=== PATIENT | female | born 1995 | race African-American/Black ===

== ENCOUNTER 2020-08-03 18:01 | Emergency (ER) | payer OTHER ==
[~2020-08-03] VITALS: Ht 147.3 cm; Wt 59.8 kg
--- NOTE | 2020-08-03 18:11 | PHYS DOC ---
Past History Past Medical History: Anxiety, Depression General Adult EDM: Chief Complaint: SUICIDAL IDEATION HPI: HPI: ".. I don't know... I woke up in the middle of night.. and I thought .. I just wanted to kill myself.. just go to sleep and never wake up.. so I took all my meds.. and planned on going to sleep and never walking up... but I woke up this morning.. .. I told my superior.. and they sent me here to get evaluated. ... I ve always had thoughts of suicide.. almost my entire life.. but never really acted on it... I did have a recent fight with my ... this weekend.. but we talked it out... it not the stress of my job... because I like my job... I ve always has some anxiety issues... especially as a teenager... I use to cut my wrists.. not to kill myself.. but get stress relief.. never been admitted for any psych.. stuff or taken any psych meds.. or even gotten any formal counselin g... 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 Patient admits to a suicide attempt last night with her significant other meds her . Patient does not know the tablet she took. Patient states that she had no ill effects from them. Patient denies any intake of acetaminophen or salicylates. Patient normally healthy. Up-to-date with vaccinations. No recent travel. Normally in good health. Does admit to a history of anxiety as a teenager and self cutting for emotional release. Patient has had history of suicidal ideation ever since she was a teenager... But has never acted on it. Patient denies any legal issues. Patient denies any problems at work. Patient states she has had some arguments with her significant other but these are what she would consider normal arguments with a spouse. No recent travel. No specific ill contacts. No recent overseas assignments. No recent assignments. Patient denies excessive alcohol use. Patient normally follows at [facility] for care Review of Systems: Review of Systems: Constitutional: Denies fever or chills Eyes: Denies change in visual acuity HENT: Denies nasal congestion or sore throat Respiratory: Denies cough or shortness of breath Cardiovascular: Denies chest pain or edema GI: Denies abdominal pain, nausea, vomiting, bloody stools or diarrhea : Denies dysuria Musculoskeletal: Denies back pain or joint pain Integument: Denies rash Neurologic: Denies headache, focal weakness or sensory changes Endocrine: Denies polyuria or polydipsia Lymphatic: Denies swollen glands Psychiatric: Complains of suicidal ideation, depression or anxiety. Complains of a suicidal attempt Family History: Family History: Noncontributory to presentation Current Medications: Current Meds: See nursing for home meds Physical Exam: PE: Constitutional: Well developed, well nourished, no acute distress, non-toxic appearance. [] HENT: Normocephalic, atraumatic, bilateral external ears normal, oropharynx moist, no oral exudates, nose normal. [] Eyes: PERRLA, EOMI, conjunctiva normal, no discharge. [] Neck: Normal range of motion, no tenderness, supple, no stridor. [] Cardiovascular:Heart rate regular rhythm, no murmur [] Lungs & Thorax: Bilateral breath sounds equal apex auscultation [] Abdomen: Bowel sounds normal, soft, no tenderness, no masses, no pulsatile masses. [] Skin: Warm, dry, no erythema, no rash. [] Old scar zamudio on her wrists. Back: No tenderness, no CVA tenderness. [] Extremities: No tenderness, no cyanosis, no clubbing, ROM intact, no edema. [] Neurologic: Alert and oriented X 3, normal motor function, normal sensory function, no focal deficits noted. [] Psychologic: Affect anxious judgement normal, mood depressed. Admits to suicid al ideation and an attempt last night. EKG: EKG: My interpretation of EKG shows a sinus rhythm at 72 bpm. No acute morphology [] Radiology/Procedures: Radiology/Procedures: [] Heart Score: C/O Chest Pain: N/A HEART Score for Chest Pain: HEART Score for Chest Pain Response (Comments) Value History Slighlty/Non-Suspicious 0 ECG Normal 0 Age < 45 0 Risk Factors 1 or 2 Risk Factors 1 Troponin < Normal Limit 0 Total 1 Risk Factors: Risk Factors: DM, Current or recent (<one month) smoker, HTN, HLP, family history of CAD, obesity. Risk Scores: Score 0 - 3: 2.5% MACE over next 6 weeks - Discharge Home Score 4 - 6: 20.3% MACE over next 6 weeks - Admit for Clinical Observation Score 7 - 10: 72.7% MACE over next 6 weeks - Early Invasive Strategies Course & Med Decision Making: Course & Med Decision Making Pertinent Labs and Imaging studies reviewed. (See chart for details) []See PAT eval. Pt. Transfer to [facility] for further tx and eval. See PAT notes. Impression: 1. Suicidal ideation 2. Pt. admits to suicidal attempt last night-by overdosing on her significant other's meds 3. History of anxiety as a teenager and and self cutting Dragon Disclaimer: Dragon Disclaimer: This electronic medical record was generated, in whole or in part, using a voice recognition dictation system. Departure Departure: Referrals: ABEL RICK DO, M[facility] (PCP) Dragon Disclaimer This chart was dictated in whole or in part using Voice Recognition software in a busy, high-work load, and often noisy Emergency Department environment. It may contain unintended and wholly unrecognized errors or omissions. QUYEN MCCORMICK MD Aug 03, 2020 18:11
[2020-08-03 18:57] LABS: BASO # 0.1 x10^3/uL (0.0-0.2); BASO % 1 % (0-3); EOS % 0 % (0-3); HEMATOCRIT 42.1 % (36.0-47.0); HEMOGLOBIN 14.1 g/dL (12.0-15.5); LYMPH # 2.3 x10^3/uL (1.0-4.8); LYMPH % 34 % (24-48); MEAN CORPUSCULAR HEMOGLOBIN 32 pg (25-35); MEAN CORPUSCULAR HGB CONC 33 g/dL (31-37); MEAN CORPUSCULAR VOLUME 95 fL (79-100); MONO # 0.7 x10^3/uL (0.0-1.1); MONO % 10 % (0-9); NEUT # 3.9 x10^3uL (1.8-7.7); NEUT % 56 % (31-73); PLATELET COUNT 397 x10^3/uL (140-400); RED BLOOD COUNT 4.44 x10^6/uL (3.50-5.40); RED CELL DISTRIBUTION WIDTH 12.9 % (11.5-14.5); WHITE BLOOD COUNT 6.9 x10^3/uL (4.0-11.0)
[2020-08-03 19:06] LABS: CALCIUM 9.3 mg/dL (8.5-10.1); GFR 83.1; MAGNESIUM 2.1 mg/dL (1.8-2.4); POTASSIUM 3.5 mmol/L (3.5-5.1)
[2020-08-03 19:09] LABS: SALIC < 2.8 mg/dL (2.8-20.0)
[2020-08-03 19:10] LABS: ETHANOL < 10 mg/dL (0-10)
[2020-08-03 19:14] LABS: BACTERIA,URINE FEW /HPF (0-FEW); BILIRUBIN,URINE NEG (NEG); CLARITY,URINE CLEAR; COLOR,URINE YELLOW; GLUCOSE,URINE NEG (NEG); NITRITE,URINE NEG (NEG); SQUAMOUS EPITHELIAL CELL,UR OCC /LPF; UROBILINOGEN,URINE 0.2 mg/dL (0.2 mg/dL); WBC,URINE OCC /HPF (0-4)
[2020-08-03 19:15] LABS: BARBITURATES NEG (NEG); BENZODIAZEPINES NEG (NEG); CANNABINOIDS POS (NEG); COCAINE NEG (NEG); METHADONE NEG (NEG); OPIATES NEG (NEG); PHENCYCLIDINE NEG (NEG)
[2020-08-03 19:16] LABS: ACETAMIN < 2.0 mcg/mL (10-30)
[2020-08-03 19:17] LABS: AMPHETAMINE/METHAMPHETAMINE NEG (NEG)
--- NOTE | 2020-08-03 19:19 | EKG ---
[address] [address] Test Date: 2020-08-03 Test Time: 18:51:13 Pat Name: WYATT ZUNIGA Department: Room: Gender: F Line Operator: LUC : 1995 Requested By: QUYEN MCCORMICK Order Number: [id number] Reading MD: Measurements Intervals [place] Rate: 72 P: 63 NM: 156 QRS: 61 QRSD: 76 T: 46 QT: 376 QTc: 413 Interpretive Statements SINUS ARRHYTHMIA OTHERWISE NORMAL ECG RI6.02 No previous ECG available for comparison
[2020-08-03 23:45] VITALS: BP 117/62
== END 2020-08-04 00:37 | disposition short-term general hospital (02) ==
LOC: ER 18:01
DX: T65.892A Toxic effect of other specified substances, intentional self-harm, initial encounter (principal); R45.851 Suicidal ideations; F41.9 Anxiety disorder, unspecified; F32.9 Major depressive disorder, single episode, unspecified; Z20.822 Contact with and (suspected) exposure to COVID-19; Y92.89 Other specified places as the place of occurrence of the external cause
CPT/HCPCS: 36415; 80048; 80307; 80329; 81001; 81025; 83735; 85025; 87426; 93005; 99285; C9803; G0480; U0003